=== PATIENT | female | born 1935 | race Caucasian/White ===

== ENCOUNTER 2017-04-25 07:47 | Outpatient (CLI) | payer MEDICARE, BC | END 2017-04-25 07:48 | disposition home or self-care (01) | LOC: BICMAMMO 07:47 | PROVIDERS: ATTEND Obstetrics & Gynecology | DX: Z12.31 Encounter for screening mammogram for malignant neoplasm of breast (principal) | CPT/HCPCS: 77063; G0202; 77067 ==

== ENCOUNTER 2018-02-17 10:46 | Outpatient (CLI) | payer MEDICARE, OTHER | END 2018-02-17 10:47 | disposition home or self-care (01) | LOC: CP 10:46 | PROVIDERS: ATTEND Internal Medicine Cardiovascular Disease | DX: R06.02 Shortness of breath (principal); I35.0 Nonrheumatic aortic (valve) stenosis | CPT/HCPCS: 94010; 94727 ==

== ENCOUNTER 2018-02-19 13:24 | Outpatient (CLI) | payer MEDICARE, OTHER ==
--- NOTE | 2018-02-19 15:50 | RAD ---
CHEST 2 VIEWS: HISTORY: Dyspnea. FINDINGS: Cardiac silhouette and pulmonary vasculature are unremarkable. Mediastinum is midline with aortic ca lcification. No lobar consolidation or evidence of pneumothorax. No pleural fluid. Calcified granu lomata are consistent with healed granulomatous disease. Postoperative changes right shoulder. IMPRESSION: Chronic-type findings. No active cardiopulmonary abnormalities are demonstrated. POS: [facility]
== END 2018-02-19 13:25 | disposition home or self-care (01) ==
LOC: BICRAD 13:24
PROVIDERS: ATTEND Psychiatry & Neurology Psychiatry
DX: I35.0 Nonrheumatic aortic (valve) stenosis (principal); R01.1 Cardiac murmur, unspecified; R06.02 Shortness of breath; Z98.890 Other specified postprocedural states
CPT/HCPCS: 71046

== ENCOUNTER 2018-04-28 09:06 | Outpatient (CLI) | payer MEDICARE, OTHER | END 2018-04-28 09:07 | disposition home or self-care (01) | LOC: BICMAMMO 09:06 | PROVIDERS: ATTEND Obstetrics & Gynecology | DX: Z12.31 Encounter for screening mammogram for malignant neoplasm of breast (principal); L90.5 Scar conditions and fibrosis of skin; Z98.890 Other specified postprocedural states | CPT/HCPCS: 77063; 77067 ==